=== PATIENT | female | born 1955 | race Caucasian/White ===

== ENCOUNTER → 2016-10-01 | Outpatient (CLI) | payer OTHER ==
[~2016-10-01] MED LIST: AMT50 PO; CLR10 PO; FLNIN NAE; FLX10 PO; METO25TA56 PO; MRLP17 PO; SUMA100T16 PO; SYN50 PO
== END | disposition home or self-care (01) ==
LOC: C.LABBFT 12:45
PROVIDERS: ATTEND Nurse Practitioner
DX: R39.9 Unspecified symptoms and signs involving the genitourinary system (principal)

== ENCOUNTER → 2017-02-10 | Outpatient (CLI) | payer OTHER ==
[2017-02-10 17:34] LABS: URINE APPEARANCE CLEAR (CLEAR); URINE BILIRUBIN NEG (NEG); URINE COLOR YELLOW; URINE EPITHELIAL CELL AUTO 20-30 /lpf (0-5); URINE NITRITE NEG (NEG); URINE PH 6.5 (4.5-7.5); URINE SPECIFIC GRAVITY 1.017 (1.000-1.030); UROBILINOGEN NEG (NEG)
[2017-02-10 17:41] LABS: MANUAL MICROSCOPIC REQUIRED? NO; REVIEW REQ? NO
== END | disposition home or self-care (01) ==
LOC: C.LABBFT 12:10
PROVIDERS: ATTEND Internal Medicine
DX: R39.9 Unspecified symptoms and signs involving the genitourinary system (principal)

== ENCOUNTER → 2017-02-16 | Outpatient (CLI) | payer OTHER ==
[2017-02-16 17:45] LABS: BASO % 0.4 %; BASO ABS # 0.02 K/uL (0-0.2); COMPLETE YES; EOS % 2.3 %; HEMATOCRIT 40.8 % (37-47); IG% 0.2 %; LYMPH % 46.1 %; LYMPH ABS # 2.18 K/uL (1.2-3.4); MEAN CELL VOLUME 89.7 fL (80-100); MEAN CORPUSCULAR HEMOGLOBIN 29.5 pg (25-34); MEAN CORPUSCULAR HGB CONC 32.8 g/dl (32-36); MEAN PLATELET VOLUME 9.9 fL (7.4-10.4); MONO % 7.8 %; NEUT % 43.2 %; PLATELET COUNT 179 K/uL (130-400); RED BLOOD COUNT 4.55 M/uL (4.2-5.4); WHITE BLOOD COUNT 4.73 K/uL (4.8-10.8)
[2017-02-16 18:03] LABS: AST/SGOT 16 U/L (15-37); BLOOD UREA NITROGEN 14 mg/dl (7-18); BUN/CREATININE RATIO 16.3 (10-20); CALCIUM 9.1 mg/dl (8.5-10.1); CARBON DIOXIDE 27 mmol/L (21-32); CHLORIDE 109 mmol/L (98-107); CHOLESTEROL 231 mg/dl (0-200); CREATININE 0.85 mg/dl (0.60-1.20); GLUCOSE 95 mg/dl (70-99); POTASSIUM 4.2 mmol/L (3.5-5.1); SODIUM 142 mmol/L (136-145)
[2017-02-16 18:14] LABS: ALKALINE PHOSPHATASE 83 U/L (45-117); ALT/SGPT 20 U/L (12-78); CHOLESTEROL/HDL RATIO 3.9; HDL CHOLESTEROL 60 mg/dl; LDL CHOLESTEROL CALCULATED 136 mg/dl; THYROID STIMULATING HORMONE 0.323 uIu/ml (0.300-4.500); TRIGLYCERIDES 173 mg/dl (0-150); VERY LOW DENSITY LIPOPROT CALC 35 mg/dl
[2017-02-17 06:52] LABS: ESTIMATED AVERAGE GLUCOSE 120 mg/dl; HA1C FLAG Normal (Normal)
== END | disposition home or self-care (01) ==
LOC: C.LABBFT 11:26
PROVIDERS: ATTEND Internal Medicine
DX: I10 Essential (primary) hypertension (principal); E03.9 Hypothyroidism, unspecified; E78.5 Hyperlipidemia, unspecified; E11.9 Type 2 diabetes mellitus without complications

== ENCOUNTER → 2017-09-16 | Outpatient (CLI) | payer OTHER ==
--- NOTE | 2017-09-17 14:17 | MAMMOGRAPHY REPORT ---
BILATERAL DIGITAL SCREENING MAMMOGRAM TOMOSYNTHESIS WITH CAD: 09/16/2017 CLINICAL HISTORY: Routine screening. Patient has no complaints. TECHNIQUE: Breast tomosynthesis in addition to standard 2D mammography was performed. Current study was also evaluated with a Computer Aided Detection (CAD) system. COMPARISON: Comparison is made to exams dated: 02/11/2016 mammogram, 02/05/2015 mammogram, 02/02/2014 mammogram, 07/12/2012 mammogram, 07/07/2011 mammogram, and 07/02/2009 mammogram - [facility]. BREAST COMPOSITION: There are scattered areas of fibroglandular density in both breasts. FINDINGS: No suspicious masses, calcifications, or areas of architectural distortion are noted in ei ther breast. There has been no significant interval change compared to prior exams. Small circumscri bed benign-appearing masses are again noted bilaterally, which are considered benign given the multip licity and bilaterality and likely represent cysts. Bilateral benign-appearing calcifications are no t significantly changed. IMPRESSION: ACR BI-RADS CATEGORY 2: BENIGN There is no mammographic evidence of malignancy. A 1 year screening mammogram is recommended. The pa tient will receive written notification of the results. Approximately 10% of breast cancers are not detected with mammography. A negative mammographic report should not delay biopsy if a clinically suggestive mass is present. Alethea Donald M.D. ah/:09/16/2017 16:03:30 Display Mechanic: Kaylie BOWERS)(Josafat), [facility] letter sent: Normal 1/2 BI-RADS Code: ACR BI-RADS Category 2: Benign
== END | disposition home or self-care (01) ==
LOC: C.MAMM 11:43
PROVIDERS: ATTEND Internal Medicine
DX: Z12.31 Encounter for screening mammogram for malignant neoplasm of breast (principal)

== ENCOUNTER → 2017-11-26 | Outpatient (CLI) | payer OTHER | END | disposition home or self-care (01) | LOC: C.PAPS 11:59 | PROVIDERS: ATTEND Obstetrics & Gynecology | DX: Z01.419 Encounter for gynecological examination (general) (routine) without abnormal findings (principal) ==

== ENCOUNTER → 2017-12-08 | Outpatient (CLI) | payer OTHER ==
--- NOTE | 2017-12-08 15:46 | DIAGNOSTIC IMAGING REPORT ---
ULTRASOUND LEFT LOWER EXTREMITY VENOUS CLINICAL HISTORY: Right leg pain. COMPARISON STUDY: No priors. TECHNIQUE: Real-time, grayscale, and color Doppler sonography of the deep veins of the left lower extremity was performed from the inguinal crease to the calf. Compression and augmentation were utilized. FINDINGS: There is extensive right lower extremity deep venous thrombosis. Nearly occlusive thrombus is seen extending from the proximal superficial femoral vein to the calf. The common femoral femoral vein is patent and normally compressible. The greater saphenous vein and the profunda femoris vein at the junction with the common femoral vein are clear. IMPRESSION: Extensive and nearly occlusive right lower extremity deep venous thrombosis as above. Electronically signed by: Darnell Avila M.D. 12/08/2017 3:45 PM Dictated Date/Time: 12/08/2017 3:44 PM
== END | disposition home or self-care (01) ==
LOC: C.ULTRBC 15:12
PROVIDERS: ATTEND Nurse Practitioner
DX: I82.4Z1 Acute embolism and thrombosis of unspecified deep veins of right distal lower extremity (principal); M79.89 Other specified soft tissue disorders; M79.605 Pain in left leg

== ENCOUNTER 2024-04-15 10:46 | Observation (INO) ==
--- NOTE | 2024-01-14 13:53 | PAT Medication Instructions ---
Medication Instructions Date of Service January 14, 2024 Home Medications Medication Instructions Recorded ergocalciferol (vitamin D2) 1,250 50,000 unit PO WEEKLY #8 caps 05/08/23 mcg (50,000 unit) capsule levothyroxine 100 mcg tablet 100 mcg PO QAM #90 tabs 09/22/23 Medication List: omeprazole 20 mg capsule,delayed release 20 mg PO QAM ergocalciferol (vitamin D2) 1,250 mcg (50,000 unit) capsule 50,000 unit PO WEEKLY levothyroxine 100 mcg tablet 100 mcg PO QAM ferrous sulfate 325 mg (65 mg iron) tablet 325 mg PO WK amitriptyline 50 mg tablet 50 mg PO HS atorvastatin 20 mg tablet 20 mg PO QAM furosemide 20 mg tablet 20 mg PO QAM metformin 500 mg tablet,extended release 24 hr 500 mg PO QPM olmesartan 20 mg tablet 20 mg PO QAM MEDICATION INSTRUCTIONS: DO NOT take the morning of surgery ergocalciferol (vitamin D2) 1,250 mcg (50,000 unit) capsule 50,000 unit PO WEEKLY furosemide 20 mg tablet 20 mg PO QAM olmesartan 20 mg tablet 20 mg PO QAM ferrous sulfate 325 mg (65 mg iron) tablet 325 mg PO WK Take morning of surgery With a small sip of water, OTHERWISE NOTHING TO EAT OR DRINK AFTER MIDNIGHT: atorvastatin 20 mg tablet 20 mg PO QAM levothyroxine 100 mcg tablet 100 mcg PO QAM omeprazole 20 mg capsule,delayed release 20 mg PO QAM Take evening before surgery amitriptyline 50 mg tablet 50 mg PO HS metformin 500 mg tablet,extended release 24 hr 500 mg PO QPM Other Notes If you have any questions please call us at [phone] or [phone] or [phone] or [phone]
--- NOTE | 2024-01-26 11:27 | Anesthesiology Consultation ---
Date of Service January 26, 2024 Assessment & Plan (1) Encounter for pre-operative examination: - Check BSG AM DOS - Infectious disease screening: Per assessment on 01/26/24: No known recent infectious disease contacts or current infectious disease symptoms. - Outpatient joint assessment: Pt currently scheduled for inpatient pathway. If surgeon requests review for outpatient joint pathway, patient is not recommended candidate for outpatient joint program from anesthesia standpoint based on available information. - S/P EGD/colonoscopy (12/08/23): MAC at [facility] Chart Review Chart Review: Acceptable Risk for Surgery and Patient seen in Pre Admission Testing Teaching & Discussion Pre-Anesthesia Teaching/Discussion Notes: Instructed NPO after midnight before surgery,except medications with 15 cc of water. Medication instructions provided according to the PAT guidelines. History Surgery Operation Date: 02/15/24 07:00 Proposed Procedures p Right Total Knee Arthroplasty - Vidal Garcia DO Height/Weight Height: 5 ft 2 in Weight: 114.7 kg Allergies Allergy/AdvReac Type Severity Reaction Status Date / Time No Known Allergies Allergy Verified 01/13/24 13:35 Medications Home Medications Medication Instructions Recorded Confirmed Last Taken omeprazole 20 mg capsule,delayed 20 mg PO QAM 05/12/21 01/13/24 12/07/23 release ergocalciferol (vitamin D2) 1,250 50,000 unit PO WEEKLY #8 caps 05/08/23 01/13/24 Unknown mcg (50,000 unit) capsule levothyroxine 100 mcg tablet 100 mcg PO QAM #90 tabs 09/22/23 01/13/24 12/06/23 ferrous sulfate 325 mg (65 mg 325 mg PO WK 11/10/23 01/13/24 Unknown iron) tablet amitriptyline 50 mg tablet 50 mg PO HS 11/27/23 01/13/24 12/06/23 atorvastatin 20 mg tablet 20 mg PO QAM 11/27/23 01/13/24 12/06/23 furosemide 20 mg tablet 20 mg PO QAM 11/27/23 01/13/24 12/06/23 metformin 500 mg tablet,extended 500 mg PO QPM 11/27/23 01/13/24 Unknown release 24 hr olmesartan 20 mg tablet 20 mg PO QAM 11/27/23 01/13/24 12/07/23 Past Medical History Medical History Arthritis Diabetes mellitus, type 2 NIDDM Fibromyalgia Focal seizure 2021 s/p neurology evaluation, no issues since GERD (gastroesophageal reflux disease) Hx of colonic polyps Hx of deep venous thrombosis (2013) LLE, unknown etiology Treated with Xarelto at the time, no issues since Hx of intracranial hemorrhage (2021) 04/2021 > cranial shunt placed at the time, "resolved"/shunt removed No issues since Hx of renal calculi Remote history - passed on its own 30+ years ago Hyperlipidemia Hypertension Hypothyroidism Iron deficiency anemia Exercise / Class Metabolic Activity II 4-5 Yardwork/Stairs/Walk up hill Past Family History Family History Sister Breast cancer Obesity Family history of diabetes mellitus Brother Skin cancer Diabetes Deep vein thrombosis Dementia Heart disease Myocardial infarction Hypertension Obesity Family history of diabetes mellitus Mother Skin cancer Diabetes Father Emphysema of lung Family/Other Ovarian cancer neice Other No family history of adverse response to anesthesia Denies family history of Prostate cancer Colorectal cancer Stroke Past Surgical History Surgical History History of anesthesia reaction Awareness during CTR surgery ([facility] [place]) History of bilateral tubal ligation History of brain shunt (2021) Due to IC Hemhorrage, treated at [facility] - has since been removed History of cardiac cath (2011) [facility], no stents ("panic attack") History of carpal tunnel release R/L History of esophagogastroduodenoscopy (EGD) EGD/colonoscopy (12/08/23): MAC at [facility] History of tooth extraction Hx of colonoscopy with polypectomy (11/2023) Past Anesthesia History No Family Hx of Anesthesia Complications and Other (Awareness during CTR surgery ([facility] surgery [place])) History of PONV No Hx of PONV and No Hx of Motion Sickness Social History Smoking Status: Former smoker tobacco type: cigarettes Do You Dip or Chew Tobacco: No Smoking End Date: Quit 40 years ago Hx Alcohol Use: No alcohol intake frequency: holidays/special occasions only Hx Substance Use: No substance use type: does not use Review of Systems Patient denies chest pain, shortness of breath, dyspnea on exertion, fever, chills, cough, wheezing, palpitations. Physical Exam Vital Signs BP 113/77 P 78 TEMP 98.3 SP02 97%RA RESP 18 Physical Full cervical extension range of motion. Full TMJ range of motion. TMD 3 finger breaths Mallampati Score III Dentition: intact, several dental restorations including caps/crowns/implant Lungs: clear throughout to auscultation Cardiac: regular rate and rhythm, no murmurs noted Spine: normal Carotid arteries: negative bruit Extremities: no LE edema Lab Results Anesthesia Preop Results Results Anesthesia Widget: WBC 5.88 K/ul (4.8-10.8) 01/26/24 Hgb 13.1 g/dl (12.0-16.0) 01/26/24 Hct 39.3 % (37.0-47.0) 01/26/24 Plt 181 K/uL (130-400) 01/26/24 Na 141 mmol/L (136-145) 01/26/24 K 4.4 mmol/L (3.5-5.1) 01/26/24 Cl 105 mmol/L (98-107) 01/26/24 CO2 31 mmol/L (21-32) 01/26/24 BUN 15 mg/dl (6-23) 01/26/24 Creat 0.96 mg/dl (0.6-1.2) 01/26/24 Glucose Level 123 mg/dl (70-99(Fasting)) H 01/26/24 PT 10.4 Seconds (9.0-12.0) 01/26/24 PTT 26 Seconds (21-31) 01/26/24 INR 1.0 (0.9-1.1) 01/26/24 HA1c 6.6 % (4.5-5.6) H 01/26/24 Blood Type A Positive 01/26/24 Antibody Screen NEGATIVE 01/26/24 Testing Electrocardiogram Date: 07/30/23 SR at 84bpm. Moderate voltage criteria for LVH, consider normal variant. No changes compared to 09/2022 ECG per confirming provider. Chest X-Ray Date: 01/26/24 FINDINGS: Cardiomediastinal and hilar silhouettes are within normal limits. No pneumothorax, pleural effusion or airspace consolidation. Bones appear grossly intact. IMPRESSION: No acute process.
--- NOTE | 2024-04-14 06:48 | History & Physical Report ---
Date of Service April 14, 2024 Assessment & Plan (1) Osteoarthritis of right knee: We will proceed with a right total knee arthroplasty. Postoperatively she will be started on Eliquis for DVT prophylaxis and kept overnight in the hospital for postop medical management. She plans to use energy physical therapy upon discharge. History of Present Illness Chief Complaint: Osteoarthritis of the right knee. Primary Care Provider: Estuardo Mansfield DO Shanice is a pleasant 68-year-old female who has been dealing with chronic increasing right knee pain. X-rays and clinical examination have been diagnostic for advanced osteoarthritis of her right knee. After failing extensive conservative treatment, she has elected to proceed with a right total knee arthroplasty. Allergies Allergy/AdvReac Type Severity Reaction Status Date / Time No Known Allergies Allergy Verified 04/08/24 11:16 Home Medications Medication Instructions Recorded Confirmed Type omeprazole 20 mg capsule,delayed 20 mg PO QAM 05/12/21 04/08/24 History release levothyroxine 100 mcg tablet 100 mcg PO QAM #90 tabs 09/22/23 04/08/24 Rx amitriptyline 50 mg tablet 50 mg PO HS 11/27/23 04/08/24 History atorvastatin 20 mg tablet 20 mg PO QAM 11/27/23 04/08/24 History furosemide 20 mg tablet 20 mg PO QAM 11/27/23 04/08/24 History metformin 500 mg tablet,extended 500 mg PO QAM 11/27/23 04/08/24 History release 24 hr olmesartan 20 mg tablet 20 mg PO QAM 11/27/23 04/08/24 History ergocalciferol (vitamin D2) 1,250 50,000 unit PO WEEKLY #8 caps 02/03/24 04/08/24 Rx mcg (50,000 unit) capsule Past Med/Surg History Problem List Osteoarthritis of right knee Iron deficiency Hypertension Vitamin D deficiency Fibromyalgia Hypercholesteremia (Chronic) Hypothyroidism (Chronic) Medical History Hx of colonic polyps Fibromyalgia Diabetes mellitus, type 2 NIDDM Hyperlipidemia Hypertension Hypothyroidism Hx of renal calculi Remote history - passed on its own 30+ years ago Iron deficiency anemia Hx of deep venous thrombosis (2013) LLE, unknown etiology Treated with Xarelto at the time, no issues since Hx of intracranial hemorrhage (2021) 04/2021 > cranial shunt placed at the time, "resolved"/shunt removed No issues since Focal seizure 2021 s/p neurology evaluation, no issues since Arthritis GERD (gastroesophageal reflux disease) Surgical History History of esophagogastroduodenoscopy (EGD) EGD/colonoscopy (12/08/23): MAC at [facility] Hx of colonoscopy with polypectomy (11/2023) History of brain shunt (2021) Due to IC Hemhorrage, treated at [facility] - has since been removed History of anesthesia reaction Awareness during CTR surgery ([facility] surgery center) History of bilateral tubal ligation History of carpal tunnel release R/L History of tooth extraction History of cardiac cath (2011) [facility], no stents ("panic attack") Family History Sister Breast cancer Obesity Family history of diabetes mellitus Brother Skin cancer Diabetes Deep vein thrombosis Dementia Heart disease Myocardial infarction Hypertension Obesity Family history of diabetes mellitus Mother Skin cancer Diabetes Father Emphysema of lung Family/Other Ovarian cancer neice Other No family history of adverse response to anesthesia Denies family history of Prostate cancer Colorectal cancer Stroke Social History Smoking Status: Former smoker Tobacco Type: Cigarettes Age Started Using Tobacco: 18; Age Quit Using Tobacco: 23; packs per day: 1.5; Second Hand Exposure: No; Do You Dip or Chew Tobacco: No; Hx Alcohol Use: No Hx Substance Use: No Preferred Language: [place]an Communication Ability: Effective Visual Impairment: No Limitations Hearing Ability: Normal Litigation Legal Secretary Required: No Beliefs That Will Affect Care: None marital status: / Current Living Situation: Alone current occupational status: retired current occupation: [employer] Feels Safe at Home: Yes Childhood Exposure to Second-Hand Smoke: Yes (father) Diet: regular caffeine: Yes Dental Care, Regularly: Yes Seatbelt Use: always Sunscreen Use: Yes Assistive Devices: Glasses Review of Systems All systems reviewed & are unremarkable except as noted in HPI & below. Physical Exam On physical exam of the right knee, she has a varus deformity. She has tenderness palpation of the distal medial femoral condyle and over the medial joint line.. Constitutional WD/WN, vitals as above Eyes PERRL, conjunctivae normal, anicteric sclerae ENMT external ear and nose normal, oropharynx normal Neck trachea midline, no thyromegaly Respiratory normal respiratory effort Cardiovascular RRR, no murmur, no edema Gastrointestinal (Abdomen) normal bowel sounds, soft, nontender, no hepatosplenomegaly Psychiatric A+Ox3, euthymic affect Results & Data Results & Data Laboratory Results . Diagnostic Findings X-rays of the right knee show advanced osteoarthritis with joint space narrowing, osteophyte formation, and [id number]-yz-[id number] articulation. PG Care Time/CCT Total # of Minutes Spent Total Time Spent with Patient: Total time spent is greater than 50% in coordination of care (as documented) at patient's floor/unit and/or counseling patient: Coding Level of Care Code None Diagnoses Osteoarthritis of right knee M17.11
[~2024-04-15 10:46] MED LIST changes: -AMT50 PO; +BUPIVACAINE 0.5 % 5 MG/1 ML PF 10ML VIAL ONE; -CLR10 PO; -FLNIN NAE; -FLX10 PO; -METO25TA56 PO; +MIDAZOLAM HCL 1 MG/ML 2ML VIAL ONE; -MRLP17 PO; +ONDANSETRON INJ 2 MG/ML 2 ML VIAL ONE; +PHENYLEPHRINE 100MCG/ML 5ML SYR ONE; +PHENYLEPHRINE HCL 10 MG/ML VIAL ONE; +PROPOFOL IV EMULSION 10 MG/ML 20 ML VIAL IV ONE; +ROPIVACAINE 0.5% 5 MG/ML 30 ML VIAL ONE; -SUMA100T16 PO; -SYN50 PO; +ePHEDrine sulfate 50 MG/5 ML SYR ONE; +fentaNYL citrate PF 100 MCG/2 ML VIAL ONE
--- NOTE | 2024-04-15 10:49 | History & Physical Bridge Note ---
Date of Service April 15, 2024 History & Physical Bridge Note I have examined the patient, reviewed the History & Physical and in the interval since the performance of the History & Physical I have noted the following changes of clinical significance: no changes noted
[2024-04-15] MEDS: LR 500ML BOLUS, THEN 15ML/HR IV SCH (11:24)
[2024-04-15] MEDS: FAMOTIDINE 20 MG TAB PO SCH (11:25)
[2024-04-15] MEDS: ACETAMINOPHEN 500 MG TAB PO SCH ×2 (11:25→21:19)
[2024-04-15] MEDS: GABAPENTIN 300 MG CAP PO SCH (11:25)
[2024-04-15] MEDS: LR 60ML/HR IV SCH (11:26)
[2024-04-15] MEDS: dexAMETHasone**PF** 10 MG/ML VIAL IV SCH (11:26)
[2024-04-15] MEDS ORDERED: ePHEDrine sulfate 50 MG/ML AMP IV PRN (11:35)
[2024-04-15] MEDS ORDERED: ATROPINE SULFATE 0.1 MG/ML 10ML SYR IV PRN (11:35)
[2024-04-15] MEDS ORDERED: ONDANSETRON INJ 2 MG/ML 2 ML VIAL IV PRN ×2 (11:35→13:47)
[2024-04-15] MEDS ORDERED: fentaNYL citrate PF 100 MCG/2 ML VIAL IV PRN (11:35)
[2024-04-15] MEDS: TRANEXAMIC ACID 1,000 MG **IV Pre-op IV SCH (11:45)
[2024-04-15 11:52] LABS: Basophils # (auto) 0.03 K/uL (0.00-0.20); Basophils % (auto) 0.6 %; Eosinophils # (auto) 0.07 K/uL (0.00-0.50); Eosinophils % (auto) 1.4 %; Hematocrit (blood only) 36.7 % (37.0-47.0); Hemoglobin 12.2 g/dl (12.0-16.0); Immature Granulocytes # (auto) 0.02 K/uL (0.01-0.20); Immature Granulocytes % (auto) 0.4 %; Lymphocytes # (auto) 2.05 K/uL (1.20-3.40); Lymphocytes % (auto) 41.4 %; Mean Corpuscular Hemoglobin 29.9 pg (25.0-34.0); Mean Corpuscular Hgb Conc 33.2 g/dL (32.0-36.0); Mean Platelet Volume 9.3 fL (9.4-12.4); Monocytes # (auto) 0.43 K/uL (0.11-0.59); Monocytes % (auto) 8.7 %; Neutrophils # (auto) 2.35 K/uL (1.40-6.50); Neutrophils % (auto) 47.5 %; Platelet Count 146 K/uL (130-400); RDW Coefficient of Variation 13.3 % (11.5-14.5); RDW Standard Deviation 43.8 fL (36.4-46.3); Red Blood Count 4.08 M/uL (4.20-5.40); White Blood Count 4.95 K/ul (4.8-10.8)
[2024-04-15] MEDS: ceFAZolin 2000MG 2,000 MG/15 ML SYR IV SCH (11:59)
[2024-04-15 12:04] LABS: Calcium 9.1 mg/dl (8.6-10.3); Creatinine Clr Calc Pharmacy 66.5 ml/min; Potassium 4.3 mmol/L (3.5-5.1)
[2024-04-15 12:21] LABS: Partial Thromboplastin Ratio 0.9; Partial Thromboplastin Time 25 Seconds (21-31); Prothrombin Time 10.4 Seconds (9.0-12.0)
[2024-04-15] MEDS: ROPIV 0.5% 246mg, Ketorolac 30mg, EPINEPHrine 0.5mg in NSS INFIL SCH (12:25)
[2024-04-15] MEDS: ORTHO JOINT ANESTHETIC ONE (12:25)
[2024-04-15] MEDS: TRANEXAMIC ACID 1,000 MG **IV Intra-op IV SCH (13:14)
[2024-04-15] MEDS ORDERED: PROPOFOL IV EMULSION 10 MG/ML 20 ML VIAL IV ONE (13:14)
--- NOTE | 2024-04-15 13:17 | Operative Report ---
PG Post Operative Report Pre & Post Diagnosis Operation Date: 04/15/24 13:40 Pre-Op Diagnosis: Arthritis Knee Right Post-Op Diagnosis: Arthritis Knee Right I identified the patient and participated in the time-out.: Yes Procedure Operation Date: 04/15/24 13:40 Actual Procedures p Right Total Knee Arthroplasty(Right) - Vidal Garcia DO Surgeon Vidal Garcia DO Turner Off Helder Ashford PA-C Estimated Blood Loss 30 Findings Consistent with Post-Op Diagnosis Specimens Right femoral and tibial bone Description of Procedure Implants used: I used a Jonathan Persona total knee arthroplasty system with a size 5 standard PS femur, C tibia, 31 oval patella, and a size 12 CPS polyethylene bearing. All components were cemented in place with Biomet cement. Shanice arrived [facility] for the above procedure. She was seen in the preoperative holding area and the operative extremity was identified and signed. She was given a preoperative antibiotic, TXA, a spinal anesthetic and an adductor nerve block. She was taken back to the operating room and laid on the table in supine position. She was given basic sedation. The operative knee was then prepped and draped in sterile fashion. A timeout was done, and the patient and the operative extremity was properly identified. A midline incision was made directly over the patella. Dissection was taken down to the extensor mechanism. A medial parapatellar arthrotomy was used. The medial retinaculum was released and the fat pad was mostly excised. The knee was flexed and the ACL, PCL, and meniscus were removed. A drill was sent down the center of the femoral canal followed by an intramedullary alesha. Off that alesha a distal femoral cutting block was placed. 9 mm was resected off the distal femur at 5 of valgus. A posterior referencing AP sizing guide was then placed on the distal femur. The femur measured to be a size 5. 2 drill holes were placed in 3 of external rotation. A 4-in-1 cutting block was then impacted into place. Anterior, posterior, and chamfer cuts were then made. The proximal tibia was then exposed. An external tibial alignment guide was placed. A tibial cut guide was then anchored in place and the proximal tibia was then resected. The posterior aspect of the knee was then opened up and any additional meniscus fragments and osteophytes were removed. The tibia measured to be a size C. The tibial plate was then placed in the appropriate rotation and the tibia was drilled and punched. Trial components were then placed. I used a size 12 CPS polyethylene insert. The knee was brought through a full range of motion and felt to be stable. The peg holes for the femoral component were then drilled. The patella was then everted and 9 mm was resected off the posterior aspect of the patella. The patella measured to be a size 31 oval. 3 peg holes were then drilled. A trial patella was placed. The knee was once again brought through a full range of motion and felt to be stable. Trial components were then removed. The surrounding soft tissues were injected with 100 cc of an orthopedic pain control cocktail. All components were then cemented into place with Biomet cement. The final polyethylene insert was then snapped into place. Once cement was dry the tourniquet was deflated. Hemost asis was obtained. A dilute betadyne lavage was then done for 3 minutes. The joint was then irrigated with normal saline solution. The medial parapatellar arthrotomy was then closed with #1 Vicryl suture. The skin was closed with 2-0 Vicryl, 3-0V lock suture, and giancarlo. A soft compressive dressing was placed. She was then transferred to a hospital bed and taken to the postanesthesia care unit in stable condition. She tolerated the procedure well. Helder Ashford PA-C, was present for the entire procedure. He was critical for patient positioning, prepping, draping, retraction exposure, wound closure and application of sterile dressing. I attest to the content of the Intraoperative Record and any orders documented therein. Any exceptions are noted below.
[2024-04-15] MEDS ORDERED: METOCLOPRAMIDE HCL INJ 5 MG/ML 2 ML VIAL IV PRN (13:47)
[2024-04-15] MEDS ORDERED: NALOXONE HCL 0.4 MG/1 ML VIAL/CARP IV PRN (13:47)
[2024-04-15] MEDS ORDERED: MAGNESIUM HYDROXIDE SUSP 30 ML UDC PO PRN (13:47)
[2024-04-15] MEDS ORDERED: traMADol HCL 50 MG TABLET PO PRN (13:47)
[2024-04-15] MEDS ORDERED: HYDROmorphone INJ 0.5 MG/0.5 ML SYR IV PRN (13:47)
[2024-04-15] MEDS ORDERED: bisacodyL 10 MG SUPP PR PRN (13:47)
--- NOTE | 2024-04-15 14:31 | XRay Report ---
XR knee RT 1 or 2V routine HISTORY: 68 years-old Female Surgical Post Op right knee arthroplasty COMPARISON: None TECHNIQUE: 2 views of the right knee FINDINGS: Total joint arthroplasty with patellar resurfacing. Anterior midline skin giancarlo with expected posto perative soft tissue swelling with deep tissue air. No acute fracture or unexpected opaque foreign porsche dy. IMPRESSION: Total joint arthroplasty with expected postoperative changes. ACT 112: Negative or not required by law. The above report was generated using voice recognition software. It may contain grammatical, syntax o r spelling errors. Electronically signed by: Geovany Scott M.D. 04/15/2024 2:29 PM
--- NOTE | 2024-04-15 14:59 | Anesthesiology Progress Note ---
Date of Service April 15, 2024 Anesthesia Post Procedure Vital Signs Vital Signs: Temp Pulse Pulse Resp BP Pulse Ox O2 Del Method 04/15/24 14:45 68 19 127/67 96 Room Air 04/15/24 14:35 36.4 C L 70 17 123/71 92 Room Air 04/15/24 14:25 67 15 112/70 93 Room Air 04/15/24 14:15 71 17 105/67 93 Room Air 04/15/24 14:05 73 23 102/54 L 95 Room Air 04/15/24 13:55 71 23 115/59 L 96 Room Air 04/15/24 13:48 36.3 C L 73 16 114/60 95 Room Air 04/15/24 11:14 37 C 83 20 190/100 H 96 Room Air Transfer of Care Handoff Completed per policy Notes Mental Status: alert / awake / arousable Patient Amnestic to Procedure: Yes Nausea / Vomiting: adequately controlled Pain: adequately controlled Airway Patency, RR, SpO2: stable & adequate BP & HR: stable & adequate Hydration State: stable & adequate Neuraxial Anesthesia: was administered and sensory block is resolving Anesthetic Complications: no major complications apparent and Pt Satisfied with anesthetic care
[2024-04-15] MEDS: KETOROLAC TROMETHAMINE 15 MG/ML VIAL IV SCH (16:47)
[2024-04-15] MEDS: ceFAZolin 1000MG 1,000 MG/7.5 ML SYR IV SCH (19:26)
[2024-04-15] MEDS: ASPIRIN 81 MG ECTAB PO SCH (19:30)
[2024-04-15] MEDS: DOCUSATE SODIUM 100 MG CAP PO SCH (20:09)
[2024-04-15] MEDS: SENNA 8.6 MG TAB PO SCH (20:09)
[2024-04-16] MEDS: oxyCODONE HCL IR 5 MG TAB (IMMEDIATE RELEASE) PO PRN (01:59)
[2024-04-16 03:25] VITALS: TEMP 98.1
[2024-04-16 07:16] VITALS: BP 113/68; PULSE 74; RESP 18; O2SAT 92
[2024-04-16] MEDS: MULTIVITAMIN TAB PO SCH (07:55)
--- NOTE | 2024-04-16 08:26 | Orthopedic Progress Note ---
Date of Service April 16, 2024 Assessment & Plan (1) Status post right knee replacement: Overall she is doing very well. She is not having much pain in the right knee. She will be seen by physical therapy today for ambulation and range of motion exercises. The nursing staff can change her dressing after physical therapy. She is on aspirin for DVT prophylaxis. She can be discharged to home later today. She will follow-up with orthopedics in 2 weeks. Lesley Prasad was seen and examined at bedside this morning. Overall she is doing very well. She is not having much pain in the right knee. She has been up and ambulating to the bathroom. She has no complaints.. Review of Systems All systems reviewed & are unremarkable except as noted in HPI & below. Physical Exam On physical exam of the right knee, the dressing is clean and dry. Her leg is out full extension. She has active dorsiflexion plantarflexion of her right ankle.. Results & Data Results & Data Laboratory Results . Diagnostic Findings Postoperative x-rays of the right knee show the prosthesis to be in anatomic alignment without any evidence of fracture complication, or loosening.. PG Care Time/CCT Total # of Minutes Spent Total Time Spent with Patient: Total time spent is greater than 50% in coordination of care (as documented) at patient's floor/unit and/or counseling patient: Coding Level of Care Code 41811 Post Operative Follow-Up Diagnoses Status post right knee replacement Z96.651
--- NOTE | 2024-04-16 08:27 | Discharge Summary ---
Date of Service April 16, 2024 Admission HPI (Per Admitting) Shanice is a pleasant 68-year-old female who has been dealing with chronic increasing right knee pain. X-rays and clinical examination have been diagnostic for advanced osteoarthritis of her right knee. After failing extensive conservative treatment, she has elected to proceed with a right total knee arthroplasty. Admission Exam (Per Admitting) On physical exam of the right knee, she has a varus deformity. She has tenderness palpation of the distal medial femoral condyle and over the medial joint line.. Principal Diagnosis Same as "Discharge Diagnosis" noted below under Discharge Instructions. Discharge Exam On physical exam of the right knee, the dressing is clean and dry. Her leg is out full extension. She has active dorsiflexion plantarflexion of her right ankle.. Discharge Data Procedures Performed Operation Date: 04/15/24 13:40 Actual Procedures p Right Total Knee Arthroplasty(Right) - Vidal Garcia DO Ordered Studies 04/15/24 05:00 US - OR guided needle placemen Routine Hospital Course (1) Status post right knee replacement: On April 15, 2024 Shanice arrived at [facility] and underwent a right knee replacement without complication. She had a spinal anesthetic. Postoperatively she was started on aspirin for DVT prophylaxis and transferred to the general orthopedic floors. Her hospital course was uneventful. On postop day #1, her vital signs were stable and her pain was well-controlled. She was able to participate well with physical therapy doing ambulation and range of motion exercises. She was then discharged to home. She will follow-up with orthopedics in 2 weeks. PG Care Time/CCT Total # of Minutes Spent Total Time Spent with Patient: Total time spent is greater than 50% in coordination of care (as documented) at patient's floor/unit and/or counseling patient: Discharge Plan Discharge Items Patient Disposition: Home - Self-Care Reason For Visit: Arthritis Knee Right Discharge Diagnosis: Right knee replacement Activity: Per Instructions section Non-emergency contact: Surgeon Call non-emergency contact if: your wound has increased redness and your wound has increased drainage Follow-up/Referrals: Estuardo Mansfield DO [Primary Care Provider] - Diet: Regular Addtl Attending Provider Instructions: Activity and Therapy Recommendations: * If you are using [facility] then therapy will be provided at your home until they feel you have accomplished all of your goals. * If you are using [facility] then Physical Therapy will be provided until they feel you are ready to start Outpatient Physical Therapy. * If you are not using home therapy then Outpatient Physical Therapy should start about 3-5 days from your day of surgery. Therapy will last about 6-10 weeks * It is important not to put a pillow under your knee when you are relaxing or sleeping. It is just as important to make sure you are getting your knee perfectly straight as it is to regain your knee bend. * You were shown a series of exercises in the hospital. Do these exercises three times each day including the exercises you were shown in physical therapy. * Get up and walk several times each day. For the first four weeks, try not to stand or walk for more than one hour at a time. If you do stand or walk for more than one hour, you will not hurt anything, but your leg will likely swell. * As you feel comfortable, you may change from the walker or crutches to a cane and then to independent walking. Medications: * Narcotic You will likely be sent home from the hospital with a prescription for the narcotic pain medication that worked best throughout your stay. * Cefadroxil -take the antibiotic twice a day for 10 days to help prevent infection. * Aspirin Most patients will be required to take Aspirin 81mg twice a day for 6 weeks after surgery. This is obtained [id number] and a prescription is not necessary. * Other medications may be prescribed for specific circumstances. If you have any questions, please call the office at . * Resume previous home medications unless otherwise instructed TEDs/Elastic Stockings: The white elastic stockings help limit swelling and prevent blood clots from forming in your legs.~ The more you wear them, the more they work. Wear them for six weeks. Dressing Care: The dressing can be changed after physical therapy on postop day #1. Daily dry dressing changes for a few days, especially if the incision is still draining some. If the incision is not draining then you may leave the giancarlo open to air. If there is a little bit of drainage or if the giancarlo are getting stuck on your clothing then cover the incision with a dry dressing. The giancarlo will be removed at your 2 week follow-up appointment. Showering: You may shower 5 days from the day of surgery as long as the incision is no longer draining. You may shower with the giancarlo exposed. Let soapy water run over the giancarlo and pat them dry. Do not scrub or soak the incision. Diet: You may resume your previous diet. Things To Watch For: * Drainage from the incision site that occurs more than one week after your surgery. * Increased redness at the incision site. * Fever above 102 degrees Fahrenheit. * Unusual chest pain or shortness of breath. * Call [facility] at with any of the above problems Follow-Up Visit: Follow-up with Dr. Garcia's office 2-3 weeks after your day of surgery. We will remove your giancarlo and answer any questions. If you have any additional questions or concerns, Dr Garcia is usually in the office at the same time and will be available An appointment was probably scheduled when you signed-up for surgery in the office. If you have any questions call Office Instructions: More detailed instructions as well as Frequently Asked Questions were provided in a folder by our office when you signed-up for surgery. Please review these instructions when you get home. If you have any further questions or concerns, please feel free to call the office at [phone] Pending Studies at Discharge: No Stand-Alone Forms: My [facility], Smoking Cessation Medications and DC Order Prescriptions: New oxycodone 5 mg tablet 5 mg PO Q6H PRN (Reason: pain) Qty: 30 0RF cefadroxil 500 mg capsule 500 mg PO BID 10 Days Qty: 20 0RF aspirin [Adult Aspirin Regimen] 81 mg tablet,delayed release (DR/EC) 81 mg PO BID Qty: 84 0RF Continued omeprazole 20 mg capsule,delayed release(DR/EC) 20 mg PO QAM levothyroxine 100 mcg tablet 100 mcg PO QAM Qty: 90 3RF ergocalciferol (vitamin D2) 1,250 mcg (50,000 unit) capsule 50,000 unit PO WEEKLY Qty: 8 2RF Patient Comments: takes on atorvastatin 20 mg tablet 20 mg PO QAM Patient Comments: HS amitriptyline 50 mg tablet 50 mg PO HS furosemide 20 mg tablet 20 mg PO QAM metformin 500 mg tablet extended release 24 hr 500 mg PO QAM olmesartan 20 mg tablet 20 mg PO QAM Admission Data Admit Date/Time: 04/15/24 13:47 Attending Provider: Vidal Garcia Admit Provider: Vidal Garcia Primary Care Provider: Estuardo Mansfield
== END 2024-04-16 12:45 | disposition home or self-care (01) ==
LOC: ASU 10:46 → 3E 10:46